=== PATIENT | female | born 1970 | race African-American/Black ===

== ENCOUNTER 2017-01-21 14:35 | Emergency (ER) | payer OTHER ==
[~2017-01-21] VITALS: Ht 167.6 cm; Wt 115.0 kg
[~2017-01-21 14:35] MED LIST: PERC5TAB12 PO; PREN0.01 PO
[2017-01-21 14:37] VITALS: BP 143/80; PULSE 75; RESP 18; TEMP 98.1; O2SAT 96
--- NOTE | 2017-01-21 15:51 | PD ---
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 She states that she just finished her menses. She thinks that she may have lost a tampon. States this tampon was inserted on Monday. She also endorses some increased urinary urgency and mild dysuria. She denies fever or chills, abdominal pain, nausea or vomiting, vaginal discharge or odor. Endorses unprotected sex with a single female partner approximately one month ago. Denies chronic health problems and takes no daily medications, NKDA. PFSH Past Medical History Cancer: No Cardiovascular Problems: No Diabetes: Yes (gestational) Patient Takes Glucophage: No Endocrine: No Glaucoma: No Genitourinary: No Hepatitis: No Hiatal Hernia: No Hypertension: No Immune Disorder: No Medical other: Yes (TRAIT FOR SICKLE CELL) Musculoskeletal: No Neurologic: No Psychiatric: No Respiratory: No Thyroid Disease: No Tetanus Vaccination: < 5 Years PNEUMOCCOCAL Vaccine (Year): 2 ?: Not LMP: 01/18/17 : 2 Para: 1 Miscarriage: 1 Past Surgical History Genitourinary Surgery: Yes (CERCLAGE x2) Pacemaker: No Other Surgery: Yes (BREAST REDUCTION 2010) Social History Alcohol Use: Yes (SOCIALLY) Tobacco Use: No Substance Use: No Allergies-Medications (Allergen,Severity, Reaction): Coded Allergies: No Known Allergies (Verified , 01/21/17) Reported Meds & Prescriptions Reported Meds & Active Scripts Active No Active Prescriptions or Reported Medications Review of Systems Except as stated in HPI: all other systems reviewed are Neg Physical Exam Narrative GENERAL: Well-nourished, well-developed nontoxic appearing obese black female in no acute distress. SKIN: Warm and dry. HEAD: Normocephalic. EYES: No scleral icterus. No injection or drainage. NECK: Supple, trachea midline. No JVD or lymphadenopathy. CARDIOVASCULAR: Regular rate and rhythm without murmurs, gallops, or rubs. RESPIRATORY: Breath sounds clear and equal bilaterally. No accessory muscle use. GASTROINTESTINAL: Abdomen soft, non-tender, nondistended. Active bowel sounds. GENITOURINARY: Normal external genitalia without lesions or erythema. Vaginal vault with small amount of blood. No drainage. Cervical os was closed without drainage. No cervical motion tenderness. Uterus nontender and nonenlarged. Bilateral adnexa nontender without masses. MUSCULOSKELETAL: No cyanosis, or edema. The patient is ambulatory, moves extremities spontaneously. BACK: Nontender without obvious deformity. No CVA tenderness. Data Data Last Documented VS Vital Signs Date Time Temp Pulse Resp B/P Pulse Ox O2 Delivery O2 Flow Rate FiO2 01/21/17 14:37 98.1 75 18 143/80 96 Room Air Orders Urinalysis - C+S If Indicated (01/21/17 16:03) Gc And Chlamydia Pcr (01/21/17 16:57) Wet Prep Profile (01/21/17 16:57) Labs Laboratory Tests Test 01/21/17 01/21/17 16:15 17:00 Urine Color YELLOW Urine Turbidity CLEAR Urine pH 5.0 Urine Specific Goodman 1.010 Urine Protein NEG mg/dL Urine Glucose (UA) NEG mg/dL Urine Ketones 10 mg/dL Urine Occult Blood LARGE Urine Nitrite NEG Urine Bilirubin NEG Urine Urobilinogen LESS THAN 2.0 MG/DL Urine Leukocyte Esterase NEG Urine RBC 148 /hpf Urine WBC 4 /hpf Urine Squamous Epithelial <1 /hpf Cells Urine Bacteria RARE /hpf Urine Mucus FEW /lpf Microscopic Urinalysis Comment CULT NOT INDICATED Clue Cells (Wet Prep) NONE SEEN Vaginal Trichomonas (Wet Prep) NONE SEEN Vaginal Yeast (Wet Prep) NONE SEEN MDM Medical Decision Making Medical Screen Exam Complete: Yes Emergency Medical Condition: Yes Differential Diagnosis Foreign body versus UTI versus STI versus Narrative Course 46-year-old female presents to the ED for evaluation of vaginal itching and discomfort. She states that she just finished her menses. She thinks that she may have lost a tampon. States this tampon was inserted on Monday. She also endorses some increased urinary urgency and mild dysuria. She denies fever or chills, abdominal pain, nausea or vomiting, vaginal discharge or odor. Endorses unprotected sex with a single female partner approximately one month ago. Vitals reviewed. Physical exam reveals an obese, nontoxic-appearing black female in no acute distress. Normal exam is benign. Pelvic exam reveals no foreign body, small amount of blood in the vaginal canal, cervix closed, no drainage. No cervical motion or adnexal tenderness. Wet prep negative. GC and chlamydia pending. I offered the patient and. 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 This is vaginal pruritus. Patient is instructed to maintain normal hygiene, use tepid water to bathe, avoid douching, follow-up with the berry planter, return for worsening symptoms. She indicated understanding of instructions and is amenable to plan of care. The patient is stable and discharged home. Diagnosis Primary Impression: Pruritus of vagina Referrals: Online Marketing Specialist Patient Instructions: General Instructions, Vaginal Discharge (ED) Additional Instructions: Rest, hydrate. The screening today was not a full panel of STD screening. Follow-up with the health department for a full panel of STD screening. Establish care with berry planter for well limited checkups in the future. Return to the ED for any urgent or emergent medical condition. Scripts No Active Prescriptions or Reported Meds Disposition: 01 DISCHARGE HOME Condition: Stable Bibi Levy Jan 21, 2017 15:51
[2017-01-21 16:44] LABS: BACTERIA, URINE RARE /hpf; BLOOD, URINE LARGE (NEG); COMMENT (UR) CULT NOT INDICATED; CULTURE IF INDICATED CULT NOT INDICATED; GLUCOSE,URINE NEG (NEG); KETONE, URINE 10 mg/dL (NEG); MUCUS URINE FEW /lpf (OCC); NITRITE,URINE NEG (NEG); SQUAMOUS EPITHELIAL CELL URINE <1 /hpf (0-5); URINE COLOR YELLOW (YELLW/STRAW)
[2017-01-21 22:14] LABS: CHLAMYDIA PCR NOT DETECTED (NOT DETECT); NEISSERIA PCR NOT DETECTED (NOT DETECT)
== END 2017-01-21 17:52 | disposition home or self-care (01) ==
LOC: NEPC 14:35
DX: L29.9 Pruritus, unspecified (principal); N89.8 Other specified noninflammatory disorders of vagina; R30.0 Dysuria; R39.15 Urgency of urination
CPT/HCPCS: 81001; 87210; 87491; 87591; 99283